=== PATIENT | female | born 1985 | race Caucasian/White ===

== ENCOUNTER 2016-04-05 17:24 | Emergency (ER) | payer OTHER ==
[~2016-04-05] VITALS: Ht 162.6 cm; Wt 68.1 kg
[2016-04-05 17:31] VITALS: BP 124/73; PULSE 113; TEMP 36.7; O2SAT 100; Ht 162.6 cm; Wt 68.1 kg
[2016-04-06] MEDS ORDERED: OXYC1TAB3 PO (22:38)
[2016-04-06] MEDS ORDERED: ONDA4TAB10 SL (22:38)
== END 2016-04-05 19:20 | disposition left against medical advice (07) ==
LOC: C.EDB 17:25 → C.ED 19:20
DX: R10.31 Right lower quadrant pain (principal)

== ENCOUNTER 2016-04-06 18:35 | Emergency (ER) | payer OTHER ==
[~2016-04-06] VITALS: Ht 162.6 cm; Wt 67.2 kg
[2016-04-06 18:44] VITALS: TEMP 37.1; Ht 162.6 cm; Wt 67.2 kg
[2016-04-06] MEDS ORDERED: SODIUM CHLORIDE 0.9% 1000ML 1,000 ML IV STA ×2 (18:54)
[2016-04-06] MEDS ORDERED: ONDANSETRON INJ 2 MG/ML 2 ML VIAL IV STA (18:54)
[2016-04-06 19:13] LABS: URINE APPEARANCE CLEAR (CLEAR); URINE BILIRUBIN NEG (NEG); URINE COLOR YELLOW; URINE NITRITE NEG (NEG); URINE SPECIFIC GRAVITY 1.017 (1.000-1.030); UROBILINOGEN NEG (NEG)
[2016-04-06 19:17] LABS: MANUAL MICROSCOPIC REQUIRED? NO; REVIEW REQ? NO
[2016-04-06] MEDS: MoRPHine SULFATE 4 MG/ML 1 ML CARP\\VIAL IV PRN ×2 (19:21→22:10)
[2016-04-06 19:32] LABS: BASO % 0.2 %; BASO ABS # 0.02 K/uL (0-0.2); COMPLETE YES; EOS % 0.6 %; HEMATOCRIT 40.9 % (37-47); IG% 0.1 %; LYMPH % 14.9 %; LYMPH ABS # 1.46 K/uL (1.2-3.4); MEAN CELL VOLUME 89.1 fL (80-100); MEAN CORPUSCULAR HEMOGLOBIN 31.2 pg (25-34); MONO % 6.4 %; NEUT % 77.8 %; PLATELET COUNT 155 K/uL (130-400); RED BLOOD COUNT 4.59 M/uL (4.2-5.4); WHITE BLOOD COUNT 9.81 K/uL (4.8-10.8)
--- NOTE | 2016-04-06 19:40 | DIAGNOSTIC IMAGING REPORT ---
CT SCAN OF THE ABDOMEN AND PELVIS WITHOUT IV CONTRAST CLINICAL HISTORY: Right flank pain. COMPARISON STUDY: Abdominal CT dated 11/28/2014. TECHNIQUE: CT scan of the abdomen and pelvis is performed from the lung bases to the proximal femora. Images are reviewed in the axial, sagittal, and coronal planes. IV contrast was not administered for this examination. Automated dose control exposure was utilized. CT DOSE: 284.90 mGy.cm FINDINGS: Lung bases: The heart is normal in size and without pericardial effusion. The lung bases are clear noting left basilar atelectasis. Liver: The unenhanced liver is normal in size, contour, and attenuation. There is no intrahepatic biliary ductal dilatation. Gallbladder: Unremarkable. Spleen: Normal in size and attenuation. Pancreas: Unremarkable. Adrenal glands: Unremarkable. Kidneys: The unenhanced kidneys are normal in size and without hydronephrosis. There is fullness of the right renal collecting system. There are 2 punctate nonobstructing left calculi. A punctate nonobstructing right renal calculus is noted. No obstructing ureteral calculus is identified. There is a 1.5 cm cyst in the left upper pole. Abdominal vasculature: The abdominal aorta is normal in course and caliber. Bowel: The small bowel and colon are normal in course and caliber. The appendix is normal as visualized. Peritoneum: There is no intraperitoneal free air or abdominal ascites. Lymphadenopathy: None. Pelvic viscera: The bladder is normal as visualized. The uterus is normal in appearance noting an intrauterine device in place. The right ovary appears larger than the left. There are numerous bilateral ovarian follicles. There is free fluid in the cul-de-sac. Skeletal structures: No lytic or blastic lesions are seen. IMPRESSION: 1. There are punctate bilateral nonobstructing renal calculi. No obstructing calculus is seen. 2. There is mild fullness of the right renal collecting system without idalia hydronephrosis. This is nonspecific but could represent the sequelae of a recently passed kidney stone. Clinical correlation will be required. 3. The ovaries appear enlarged and contain numerous follicles. There is asymmetric enlargement of the right ovary as compared to the left as well as free fluid in the cul-de-sac. If there is clinical concern for ovarian pathology a pelvic ultrasound should be considered for further assessment. Electronically signed by: Troy Katz M.D. 04/06/2016 7:39 PM Dictated Date/Time: 04/06/2016 7:32 PM
[2016-04-06 20:11] LABS: ALKALINE PHOSPHATASE 43 U/L (45-117); ALT/SGPT 14 U/L (12-78); BLOOD UREA NITROGEN 12 mg/dl (7-18); BUN/CREATININE RATIO 14.9 (10-20); CALCIUM 9.2 mg/dl (8.5-10.1); CARBON DIOXIDE 25 mmol/L (21-32); CHLORIDE 104 mmol/L (98-107); CREATININE 0.81 mg/dl (0.60-1.20); GLUCOSE 72 mg/dl (70-99); SODIUM 139 mmol/L (136-145)
[2016-04-06 20:55] LABS: PREG INTERNAL NEGATIVE QC NEG CLEAR BACKGROUND; PREG INTERNAL POSITIVE QC POS CONTROL LINE
--- NOTE | 2016-04-06 22:09 | DIAGNOSTIC IMAGING REPORT ---
ULTRASOUND OF THE PELVIS CLINICAL HISTORY: Right pelvic pain. COMPARISON STUDY: Pelvic CT dated 04/06/2016. Pelvic ultrasound dated 11/28/2014. TECHNIQUE: Real-time, grayscale, and color flow sonography of the pelvis is performed both transabdominally and endovaginally. Images are reviewed in the transverse and longitudinal planes. FINDINGS: Uterus: The uterus is normal in size and echotexture, measuring 9.0 x 4.4 x 6.6 cm. Endometrium: The endometrium is normal in appearance, and the endometrial stripe is normal in thickness measuring up to 1.0 cm. An intrauterine device appears to be in appropriate position. Ovaries: The right ovary appears enlarged, measuring 5.8 x 3.9 x 5.4 cm and the left ovary measures 4.4 x 2.1 x 2.7 cm. There is a smaller structure appears to contain follicles are cystic foci adjacent the right ovary which measures 2.0 x 1.1 x 1.9 cm. Bilateral follicles are noted. Normal Doppler waveforms are shown within both ovaries. Pelvis: There is a moderate volume of free fluid in the cul-de-sac. IMPRESSION: 1. The uterus and left ovary normal in appearance noting an intrauterine device in place. 2. There is a moderate volume of free fluid in the cul-de-sac. 3. There is no sonographic evidence of ovarian torsion at the time of examination. 4. The right ovary appears enlarged and heterogeneous. There is an additional structure located immediately adjacent the right ovary measuring up to 2.0 cm. Both demonstrate internal flow. This represents a change from the prior pelvic ultrasound dated 11/28/2014 and this is of indeterminant significance. This could represent atypical large hemorrhagic cyst or possibly an endometrioma. A mass lesion or ectopic is considered less likely but would be impossible to exclude. Correlation with serum beta-hCG levels required. Follow-up with gynecology is recommended and a precautionary follow-up ultrasound is recommended in 1 to 2 menstrual cycles to document resolution. Electronically signed by: Troy Katz M.D. 04/06/2016 10:08 PM Dictated Date/Time: 04/06/2016 9:59 PM
[2016-04-06] MEDS ORDERED: OXYC1TAB3 PO (22:38)
[2016-04-06] MEDS ORDERED: ONDA4TAB10 SL (22:38)
[2016-04-06] MEDS ORDERED: OXYCODONE IR HOME PACK PO ONE (22:45)
[2016-04-06] MEDS ORDERED: ONDANSETRON HOME PACK 4MG OD TAB PO ONE (22:45)
[2016-04-06 23:02] VITALS: BP 107/71; PULSE 77; O2SAT 97
--- NOTE | 2016-04-07 01:21 | EMERGENCY ROOM VISIT NOTE ---
History Report prepared by Anastacia: Saundra Barcenas Under the Supervision of: Barrie CohO. First contact with patient: 18:49 Chief Complaint: ABDOMINAL PAIN Stated Complaint: RIGHT SIDE AB PAIN Nursing Triage Summary: RLQ pain into back. hx of kidney stones. no urinary symptoms History of Present Illness The patient is a 30 year old female who presents to the Emergency Room via with complaints of worsening abdominal pain with onset 2 days ago. She describes that the pain would wrap around her side. She describes that the pain feels as if it is located in her kidneys. Several days ago, the patient noticed that coughing made her vomit. She notes that she has a history of kidney stones but that these symptoms feel different. The patient denies taking daily medications. She denies fevers, chills. The patient notes that she has some abdominal pain with intercourse. She denies vaginal discharge or unusual bleeding. Additionally, the patient notes that she came to the ED yesterday to be evaluated for these symptoms. She waited in the waiting room for two hours until leaving without being seen. Source of History: patient Onset: 2 days ago Position: abdomen Quality: other (abdominal pain) Timing: worsening Associated Symptoms: No chills, No fevers Note: The patient notes that she has some abdominal pain with intercourse. She denies vaginal discharge or unusual bleeding. Review of Systems See HPI for pertinent positives & negatives. A total of 10 systems reviewed and were otherwise negative. Past Medical & Surgical Medical Problems: (1) Hx of ovarian cyst (2) No chronic problems Family History Kidney disease Kidney stones Social History Smoking Status: Current Every Day Smoker Alcohol Use: occasionally Marital Status: single Housing Status: lives with family Occupation Status: employed Current/Historical Medications Scheduled Iud's (Paragard Intrauterine Trout Farmer), 1 EA INT UTER UD Ondasetron Odt (Zofran Odt), 4 MG SL Q6H Scheduled PRN Oxycodone Immediate Rel Tab (Roxicodone Ir), 1-2 TAB PO Q4H PRN for Severe Pain Allergies Coded Allergies: No Known Allergies (Verified , 04/06/16) Physical Exam Vital Signs Date Time Temp Pulse Resp B/P Pulse Ox O2 Delivery O2 Flow Rate FiO2 04/06/16 23:02 77 18 107/71 97 04/06/16 22:08 72 18 114/74 97 Room Air 04/06/16 19:09 103 04/06/16 18:44 37.1 107 20 101/66 100 Room Air Physical Exam GENERAL: Patient is awake, alert, somewhat anxious appearing and uncomfortable. EYES: The conjunctivae are clear. The pupils are round and reactive. EARS, NOSE, MOUTH AND THROAT: The nose is without any evidence of any deformity. Mucous membranes are moist tongue is midline NECK: The neck is nontender and supple. RESPIRATORY: Normal respiratory effort is noted there is no evidence of wheezing rhonchi or rales CARDIOVASCULAR: Regular rate and rhythm noted there no murmurs rubs or gallops normal S1 normal S2 GASTROINTESTINAL: The abdomen is mildly distended but soft. There was significant right lower quadrant tenderness to palpation, mild guarding was noted in the right lower quadrant. Bowel sounds are present in all quadrants. BACK: Mild right CVA tenderness to percussion, no midline tenderness was noted , range of motion appeared intact. MUSCULOSKELETAL/EXTREMITIES: There is no evidence of gross deformity full range of motion is noted in the hips and shoulders SKIN: There is no obvious evidence of any rash. There are no petechiae, pallor or cyanosis noted. NEUROLOGIC: Patient is awake alert and oriented x3. Medical Decision & Procedures ER Provider Diagnostic Interpretation: CT results as stated below per my review and radiologist interpretation. Other radiology results per my review and radiologist interpretation: CT SCAN OF THE ABDOMEN AND PELVIS WITHOUT IV CONTRAST CLINICAL HISTORY: Right flank pain. COMPARISON STUDY: Abdominal CT dated 11/28/2014. TECHNIQUE: CT scan of the abdomen and pelvis is performed from the lung bases to the proximal femora. Images are reviewed in the axial, sagittal, and coronal planes. IV contrast was not administered for this examination. Automated dose control exposure was utilized. CT DOSE: 284.90 mGy.cm FINDINGS: Lung bases: The heart is normal in size and without pericardial effusion. The lung bases are clear noting left basilar atelectasis. Liver: The unenhanced liver is normal in size, contour, and attenuation. There is no intrahepatic biliary ductal dilatation. Gallbladder: Unremarkable. Spleen: Normal in size and attenuation. Pancreas: Unremarkable. Adrenal glands: Unremarkable. Kidneys: The unenhanced kidneys are normal in size and without hydronephrosis. There is fullness of the right renal collecting system. There are 2 punctate nonobstructing left calculi. A punctate nonobstructing right renal calculus is noted. No obstructing ureteral calculus is identified. There is a 1.5 cm cyst in the left upper pole. Abdominal vasculature: The abdominal aorta is normal in course and caliber. Bowel: The small bowel and colon are normal in course and caliber. The appendix is normal as visualized. Peritoneum: There is no intraperitoneal free air or abdominal ascites. Lymphadenopathy: None. Pelvic viscera: The bladder is normal as visualized. The uterus is normal in appearance noting an intrauterine device in place. The right ovary appears larger than the left. There are numerous bilateral ovarian follicles. There is free fluid in the cul-de-sac. Skeletal structures: No lytic or blastic lesions are seen. IMPRESSION: 1. There are punctate bilateral nonobstructing renal calculi. No obstructing calculus is seen. 2. There is mild fullness of the right renal collecting system without idalia hydronephrosis. This is nonspecific but could represent the sequelae of a recently passed kidney stone. Clinical correlation will be required. 3. The ovaries appear enlarged and contain numerous follicles. There is asymmetric enlargement of the right ovary as compared to the left as well as free fluid in the cul-de-sac. If there is clinical concern for ovarian pathology a pelvic ultrasound should be considered for further assessment. Electronically signed by: Troy Katz M.D. 04/06/2016 7:39 PM Dictated Date/Time: 04/06/2016 7:32 PM ULTRASOUND OF THE PELVIS CLINICAL HISTORY: Right pelvic pain. COMPARISON STUDY: Pelvic CT dated 04/06/2016. Pelvic ultrasound dated 11/28/2014. TECHNIQUE: Real-time, grayscale, and color flow sonography of the pelvis is performed both transabdominally and endovaginally. Images are reviewed in the transverse and longitudinal planes. FINDINGS: Uterus: The uterus is normal in size and echotexture, measuring 9.0 x 4.4 x 6.6 cm. Endometrium: The endometrium is normal in appearance, and the endometrial stripe is normal in thickness measuring up to 1.0 cm. An intrauterine device appears to be in appropriate position. Ovaries: The right ovary appears enlarged, measuring 5.8 x 3.9 x 5.4 cm and the left ovary measures 4.4 x 2.1 x 2.7 cm. There is a smaller structure appears to contain follicles are cystic foci adjacent the right ovary which measures 2.0 x 1.1 x 1.9 cm. Bilateral follicles are noted. Normal Doppler waveforms are shown within both ovaries. Pelvis: There is a moderate volume of free fluid in the cul-de-sac. IMPRESSION: 1. The uterus and left ovary normal in appearance noting an intrauterine device in place. 2. There is a moderate volume of free fluid in the cul-de-sac. 3. There is no sonographic evidence of ovarian torsion at the time of examination. 4. The right ovary appears enlarged and heterogeneous. There is an additional structure located immediately adjacent the right ovary measuring up to 2.0 cm. Both demonstrate internal flow. This represents a change from the prior pelvic ultrasound dated 11/28/2014 and this is of indeterminant significance. This could represent atypical large hemorrhagic cyst or possibly an endometrioma. A mass lesion or ectopic is considered less likely but would be impossible to exclude. Correlation with serum beta-hCG levels required. Follow-up with gynecology is recommended and a precautionary follow-up ultrasound is recommended in 1 to 2 menstrual cycles to document resolution. Electronically signed by: Troy Katz M.D. 04/06/2016 10:08 PM Dictated Date/Time: 04/06/2016 9:59 PM Laboratory Results 04/06/16 19:10 Red Blood Count 4.59, Mean Corpuscular Volume 89.1, Mean Corpuscular Hemoglobin 31.2, Mean Corpuscular Hemoglobin Concent 35.0, Mean Platelet Volume 12.0, Neutrophils (%) (Auto) 77.8, Lymphocytes (%) (Auto) 14.9, Monocytes (%) (Auto) 6.4, Eosinophils (%) (Auto) 0.6, Basophils (%) (Auto) 0.2, Neutrophils # (Auto) 7.63, Lymphocytes # (Auto) 1.46, Monocytes # (Auto) 0.63, Eosinophils # (Auto) 0.06, Basophils # (Auto) 0.02 04/06/16 19:10 Test 04/06/16 19:00 04/06/16 19:10 04/06/16 22:25 Urine Color YELLOW Urine Appearance CLEAR (CLEAR) Urine pH 7.0 (4.5-7.5) Urine Specific [place] 1.017 (1.000-1.030) Urine Protein NEG (NEG) Urine Glucose (UA) NEG (NEG) Urine Ketones NEG (NEG) Urine Occult Blood NEG (NEG) Urine Nitrite NEG (NEG) Urine Bilirubin NEG (NEG) Urine Urobilinogen NEG (NEG) Urine Leukocyte Esterase NEG (NEG) Urine Test NEG (NEG) White Blood Count 9.81 K/uL (4.8-10.8) Red Blood Count 4.59 M/uL (4.2-5.4) Hemoglobin 14.3 g/dL (12.0-16.0) Hematocrit 40.9 % (37-47) Mean Corpuscular Volume 89.1 fL (80-100) Mean Corpuscular Hemoglobin 31.2 pg (25-34) Mean Corpuscular Hemoglobin Concent 35.0 g/dl (32-36) Platelet Count 155 K/uL (130-400) Mean Platelet Volume 12.0 fL (7.4-10.4) Neutrophils (%) (Auto) 77.8 % Lymphocytes (%) (Auto) 14.9 % Monocytes (%) (Auto) 6.4 % Eosinophils (%) (Auto) 0.6 % Basophils (%) (Auto) 0.2 % Neutrophils # (Auto) 7.63 K/uL (1.4-6.5) Lymphocytes # (Auto) 1.46 K/uL (1.2-3.4) Monocytes # (Auto) 0.63 K/uL (0.11-0.59) Eosinophils # (Auto) 0.06 K/uL (0-0.5) Basophils # (Auto) 0.02 K/uL (0-0.2) RDW Standard Deviation 42.1 fL (36.4-46.3) RDW Coefficient of Variation 12.9 % (11.5-14.5) Immature Granulocyte % (Auto) 0.1 % Immature Granulocyte # (Auto) 0.01 K/uL (0.00-0.02) Anion Gap 10.0 mmol/L (3-11) Est Creatinine Clear Calc Drug Dose 95.7 ml/min Estimated GFR () 113.0 Estimated GFR (Non- 97.5 BUN/Creatinine Ratio 14.9 (10-20) Calcium Level 9.2 mg/dl (8.5-10.1) Total Bilirubin 0.4 mg/dl (0.2-1) Direct Bilirubin mg/dl (0-0.2) Aspartate Amino Transf (AST/SGOT) U/L (15-37) Alanine Aminotransferase (ALT/SGPT) 14 U/L (12-78) Alkaline Phosphatase 43 U/L (45-117) Total Protein 8.1 gm/dl (6.4-8.2) Albumin 4.4 gm/dl (3.4-5.0) Lipase 131 U/L (73-393) Date/Time Source Procedure Growth Status 04/06/16 22:25 Vaginal Swab Trichomonas Preparation - Final Complete Laboratory results per my review. Medications Administered Medications (Trade) Dose Ordered Sig/David Route Start Time Stop Time Status Last Admin Dose Admin Sodium Chloride 1,000 ml @ 999 mls/hr Q1H1M STAT IV 04/06/16 18:54 04/06/16 19:54 DC 04/06/16 18:54 999 MLS/HR Sodium Chloride (Nss 1000ml) 1,000 ml @ 125 mls/hr Q8H STAT IV 04/06/16 18:54 04/06/16 23:41 DC 04/06/16 18:54 125 MLS/HR Morphine Sulfate (MoRPHine SULFATE INJ) 4 mg Q15M PRN IV 04/06/16 19:00 04/06/16 23:41 DC 04/06/16 22:10 4 MG Ondansetron HCl (Zofran Inj) 4 mg NOW STAT IV 04/06/16 18:54 04/06/16 18:56 DC 04/06/16 18:54 4 MG Oxycodone HCl (Roxicodone Immediate Rel 5MG Home Pack) 1 homepack UD ONCE PO 04/06/16 22:45 04/06/16 22:46 DC 04/06/16 22:45 1 HOMEPACK Ondansetron HCl (ZOFRAN ODT 4MG Home Pack) 1 homepack UD ONCE PO 04/06/16 22:45 04/06/16 22:46 DC 04/06/16 22:45 1 HOMEPACK ED Course 1851: The patient was evaluated in room B2. A complete history and physical examination were performed. 1854: Zofran 4 mg IV, NSS 1,000 ml @ 125 mls/hr IV, NSS 1,000 ml @ 999 mls/hr IV 1900: Morphine Sulfate 4 mg IV 2234: I discussed the case with Dr. Houston (OBGYN); she advises that she will see the the patient as an outpatient in the office. 2235: Upon reevaluation, the patient is doing well. I discussed the results and treatment plan with the patient. She verbalized agreement of the treatment plan. The patient was discharged home. 5: Zofran 4 mg 1 homepack PO, Oxycodone HCl 5 mg 1 homepack PO Medical Decision Differential diagnosis: Etiologies such as appendicitis, diverticulitis, PUD, biliary pathology, UTI, pancreatitis, obstruction, mesenteric ischemia, aortic pathology, infections, inflammatory bowel disease, renal colic, as well as others were entertained. Nursing notes reviewed. The patient is a 30-year-old female who presented to the emergency department for an evaluation of right-sided abdominal pain. The patient had a kidney stone the past and thought that this was consistent with her previous kidney stone. She was found have very significant right lower quadrant abdominal tenderness and I was concerned this could represent appendicitis. On CT the abdomen and pelvis was found the patient has a right adnexal abnormality. Pelvic exam revealed no signs of pelvic inflammatory disease. She did not have discharge or and injected cervix. The patient was treated with IV fluids in the emergency department. She was also given IV pain medication IV antiemetics. On subsequent reevaluation she was feeling much better. CAT scan do not show any signs of appendicitis but did reveal abnormality in the right adnexa. Ultrasound was obtained. There does appear to be an ovarian cyst at this time which may be hemorrhagic in nature. There was free fluid in the pelvis. I discussed the patient's laboratory and radiographic studies with her. I also discussed her case with the on-call [facility] physician. They've agreed to evaluate the patient in the emergency department for further management and disposition. Consults Time Called: 2231 Consulting Physician: Dr. Houston (OBGYN) Returned Call: 2233 I discussed the case with Dr. Houston (OBGYN); she advises that she will see the the patient as an outpatient in the office. Impression Primary Impression: Right sided abdominal pain Additional Impression: Right ovarian cyst Scribe Attestation The scribe's documentation has been prepared under my direction and personally reviewed by me in its entirety. I confirm that the note above accurately reflects all work, treatment, procedures, and medical decision making performed by me. Departure Information Dispostion Home / Self-Care Prescriptions Ondasetron Odt (ZOFRAN ODT) 4 Mg Tab 4 MG SL Q6H for Nausea, #15 TAB Prov: Morgan Perez, DO 04/06/16 Oxycodone Immediate Rel Tab (ROXICODONE IR) 5 Mg Tab 1-2 TAB PO Q4H Y for Severe Pain, #24 TAB Prov: Morgan Perez, DO 04/06/16 Referrals No Doctor, Assigned (PCP) Forms Call Back Authorization, HOME CARE DOCUMENTATION FORM, IMPORTANT VISIT INFORMATION, Work Instructions Patient Instructions ED Cyst Ovarian, [facility] Additional Instructions Call the [facility] physician to schedule a follow-up appointment. Drink plenty of clear liquids. Rest and avoid any strenuous activity. Return to the emergency department immediately if symptoms change worsen or the need arises. Problem Qualifiers
[2016-04-09 02:15] LABS: CHLAMYDIA TRACH RNA*** NOT DETECTED (NOT DETECTED); GC (NEIS GONORRHOEAE)RNA** NOT DETECTED (NOT DETECTED)
== END 2016-04-06 23:03 | disposition home or self-care (01) ==
LOC: C.EDB 18:36
DX: N83.201 Unspecified ovarian cyst, right side (principal); Z87.442 Personal history of urinary calculi; F17.210 Nicotine dependence, cigarettes, uncomplicated

== ENCOUNTER 2016-07-29 15:11 | Emergency (ER) | payer OTHER ==
[~2016-07-29] VITALS: Ht 162.6 cm; Wt 64.6 kg
[~2016-07-29 15:11] MED LIST: ONDA4TAB10 SL; OXYC1TAB3 PO
[2016-07-29 15:20] VITALS: TEMP 36.6; Ht 162.6 cm; Wt 64.6 kg
[2016-07-29] MEDS ORDERED: FLUO20CA20 PO (15:28)
[2016-07-29] MEDS ORDERED: IBUP-1050 PO (15:28)
--- NOTE | 2016-07-29 15:44 | DIAGNOSTIC IMAGING REPORT ---
RIGHT WRIST 4 VIEWS HISTORY: R wrist pain Right COMPARISON: None. FINDINGS: There is no fracture or dislocation. Soft tissues are unremarkable. No radiopaque foreign bodies. IMPRESSION: No fractures. Electronically signed by: Shalom Davis M.D. 07/29/2016 3:42 PM Dictated Date/Time: 07/29/2016 3:41 PM
[2016-07-29] MEDS ORDERED: IUD'IUD INT UTER (16:19)
[2016-07-29 16:24] VITALS: BP 112/60; PULSE 68; O2SAT 99
--- NOTE | 2016-07-30 01:20 | EMERGENCY ROOM VISIT NOTE ---
ED Visit Note First contact with patient: 15:23 Chief Complaint: Right wrist pain. History of Present Illness: Ms. Patterson is a 31-year-old white female who ambulates into the ED accompanied by her son complaining of left wrist and forearm pain. Patient reports historically she has a history of cracking her knuckles, her wrists and her forearms. She does report she has no history of recent trauma to the right upper extremity. Patient reports she has been having a throbbing and achy pain from the mid forearm extending down into the wrist and the proximal aspect of the thumb. She rates this discomfort 5/10. The pain is nonradiating. The pain worsens with palpation, pronation and flexion and extension of the wrist. She does report she used one dose of ibuprofen yesterday with mild relief of her discomfort. She denies any associated symptoms including fevers, chills, sweats , skin eruptions, skin color changes neck pain, elbow pain, finger pain, arm/ wrist/hand weakness/numbness/tingling. Additionally she reports she has had no previous significant injuries or surgeries. Review of Systems: As noted above in history of present illness. 8 body systems were reviewed and found to be negative as noted above. Past Medical History: Gastric ulcers, GERD, kidney stones, constipation, ovarian cyst. Current Medications: control, ibuprofen, fluoxetine. Allergies to Medications: Patient denies. Social History: Patient is currently employed; she feels safe in her home environment; she admits to tobacco use and alcohol use. Physical Examination: Vital Signs: Date Time Temp Pulse Resp B/P Pulse Ox O2 Delivery O2 Flow Rate FiO2 07/29/16 15:20 36.6 72 18 119/52 97 Room Air GENERAL: 31-year-old female in mild distress due to pain, nontoxic-appearing, afebrile and hemodynamically stable. NEUROLOGICAL: Awake, alert and oriented to person, place and time. Answering questions appropriately and following commands. Normal gait. Good hand eye coordination. No focal motor or sensory deficits. SKIN: Warm, dry and pink. No soft tissue eruptions or trauma noted. LEFT UPPER EXTREMITY: No gross bony deformity. No tenderness in the shoulder, humerus, elbow or fingers. Mild tenderness starting at the mid forearm and extending distally into the wrist and proximal portion of the hand. The pain is mostly in the tendons of the musculature of the forearm. No tenderness over the bony prominences. Do not appreciate any bony deformity or crepitus. There is no swelling, erythema or ecchymosis. She has full range of motion in flexion and extension of the elbow and flexion and extension of all fingers. Decreased range of motion in all movements of the wrist due to pain. Throughout the hand the skin was warm and pink and capillary refill is brisk. She is able to distinguish light sensations through all dermatomes. ED Course: Patient is assessed as noted above. Right Wrist X-Rays: Were read by myself and the radiologist showing no acute fractures or dislocations. Soft tissues are unremarkable and there is no foreign bodies present. Patient was offered pain medications and refused. Patient's wrist/hand was placed in a thumb spica. Patient was educated about today's findings and instructed on her treatment plan ; she verbalizes understanding and agreement with this plan. Clinical Impression: Tendinitis. Decision-Making: Initially my differential diagnosis I considered bony fracture , dislocation, muscle strain, ligamentous sprain, tendinitis, bursitis and other causes. Disposition: Patient discharged home in stable condition accompanied by her son ; prior to departure she was reassessed and subjectively reported she was feeling slightly better. Plan: Comfort measures were discussed with the patient including alternating ibuprofen and acetaminophen every 3 hours for pain, she was prescribed a Medrol Dosepak for inflammation, she was encouraged to use ice and splint. Patient was encouraged to follow-up with ep specialist if no better 6 or 7 days. Patient was encouraged return ED for worsening/uncontrolled pain, wrist/arm swelling/redness, finger weakness/numbness/tingling or any new/concerning symptoms.
== END 2016-07-29 16:25 | disposition home or self-care (01) ==
LOC: C.EDB 15:13 → C.EDD 16:25
DX: M77.8 Other enthesopathies, not elsewhere classified (principal); K21.9 Gastro-esophageal reflux disease without esophagitis; Z87.442 Personal history of urinary calculi; Z79.3 Long term (current) use of hormonal contraceptives; Z79.899 Other long term (current) drug therapy; Z72.0 Tobacco use

== ENCOUNTER → 2016-08-11 | Outpatient (CLI) | payer OTHER ==
[~2016-08-11] MED LIST changes: +CEPH-571 PO; +CYCL10TA6 PO; +FLUO20CA20 PO; +IBUP-1050 PO; +IUD'IUD INT UTER; -ONDA4TAB10 SL; -OXYC1TAB3 PO
--- NOTE | 2016-08-11 12:43 | DIAGNOSTIC IMAGING REPORT ---
CERVICAL SPINE 3 VIEWS HISTORY: Pain. Neuropathy. NECK PAIN COMPARISON: None. FINDINGS: The cervical spine is visualized from C1 through the superior endplate of T1. There is no fracture. No subluxation. Mild degenerative disc change C5-C6. Prevertebral soft tissues and the atlantodens interval are intact. IMPRESSION: Mild degenerative change C5-C6. Otherwise negative study Electronically signed by: Kris North M.D. 08/11/2016 12:42 PM Dictated Date/Time: 08/11/2016 12:41 PM
== END | disposition home or self-care (01) ==
LOC: C.RAD 12:06
PROVIDERS: ATTEND Nurse Practitioner
DX: M54.2 Cervicalgia (principal)

== ENCOUNTER 2016-10-23 08:07 | Emergency (ER) | payer OTHER ==
[~2016-10-23] VITALS: Ht 162.6 cm; Wt 63.8 kg
[~2016-10-23 08:07] MED LIST changes: -CEPH-571 PO; -CYCL10TA6 PO
[2016-10-23 08:15] VITALS: TEMP 36.7; Ht 162.6 cm; Wt 63.8 kg
[2016-10-23] MEDS ORDERED: CYCL10TA6 PO (08:49)
[2016-10-23 08:59] VITALS: BP 111/59; PULSE 65; O2SAT 98
--- NOTE | 2016-10-23 18:21 | EMERGENCY ROOM VISIT NOTE ---
ED Visit Note First contact with patient: 08:25 CHIEF COMPLAINT: Neck pain History of present illness: This 31-year-old white female patient presents with neck pain that she has been dealing with for several months. She has been in physical therapy for the last 5 weeks. 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 Over the past several days her neck pain is becoming worse. She denies any radiculopathy. She has known arthritic disease at the C5-C6 level by x-ray. No injury to the area. No recent heavy exertion or unusual activity that he knows that may have started the pain. No numbness or weakness of the extremities. No nausea or vomiting. The pain is worse with neck movement. She states she has not taken anything for the discomfort. She has an easily upset stomach and does not take many anti-inflammatories. She has not had MRI imaging yet. Pain is worse with looking up or rotating her neck. Her best position is looking slightly down. REVIEW OF SYSTEM: HEENT: No dizziness, visual problems, hearing loss, or tinnitus. There is no difficulty swallowing and no oral lesions are present. PULMONARY: No cough, shortness of breath, sputum production or hemoptysis. CARDIOVASCULAR: No chest pain, palpitations, shortness of breath or peripheral edema. GASTROINTESTINAL: No diarrhea, constipation, nausea, vomiting, or abdominal pain. GENITOURINARY: No dysuria, frequency, urgency or nocturia. NEUROLOGIC: No weakness, muscle tenderness, epilepsy or history of neurological problems. MUSCULOSKELETAL: No history of joint tenderness/swelling. No history of arthritis or arthralgias. SKIN: No rashes or lesions. PSYCHIATRIC: Positive history of depression ENDOCRINE: No history of diabetes, thyroid disorders, or abnormal hair growth. PMH: Significant for history of depression, ovarian cysts, constipation, kidney stones, and GERD Previous surgeries: Tonsillectomy, laryngotomy, coloscopy. Family history: Significant for diabetes, heart disease, hypertension, cancer, lung disease, gallbladder disease, and kidney stones. Parents are living. SOCIAL HISTORY: Patient lives at home with her child. Employed. Tobacco use of a half pack a day. Occasional EtOH use. Current medications: Intermittent use of fluoxetine. Allergies: NKDA PHYSICAL EXAM: Vital Signs: Reviewed Nurse's notes. Afebrile. MENTAL STATUS: Alert, oriented, and cooperative. NECK: Paraspinous muscle tenderness, bilateral muscle spasm in the trapezius. Focal discomfort with palpation over the C4 through C6 area. No pain with palpation over her C7 through lumbar spine. Limited rotation secondary to muscle spasm. Full forward flexion. Extension also limited secondary to discomfort. CHEST: Non-tender, symmetrical , no retractions. LUNGS: Clear to auscultation. NEUROLOGICAL: Alert, oriented, and cooperative. Cranial nerves, sensation and strength grossly intact. Pupils round, equal, and react to light, EOMs are full. EMERGENCY DEPARTMENT COURSE: Radiographic imaging previously obtained shows some minor arthritic change at C5-C6. No other abnormalities are noted. DIAGNOSIS: Cervical muscle strain DISCHARGE INSTRUCTIONS & TREATMENT: Patient was educated regarding today's findings. Conservative care measures were discussed. Possibility of cervical disc disease was discussed. I did suggest that she talk with her PCP about MRI imaging of her neck, as symptoms have been persisting despite physical therapy and conservative treatment. She may use oral anti-inflammatories such as ibuprofen or Aleve to improve her comfort. Given her muscle spasms, I did recommend muscle relaxant use for better pain control. Prescription was provided for Flexeril 10 mg to be used every 8 hours as needed for pain/spasm. Rest and avoid any painful or strenuous activities. She will need to be careful about lifting anything heavy above shoulder level or way from the body while at work. She may also elect to find a physical therapist that specializes in spine care. Return to the ED for any other concerns. She was reassured that I do not suspect fracture, meningitis, or brachial plexus injury. Problem List Medical Problems: (1) Hx of ovarian cyst Status: Resolved (2) No chronic problems Status: Chronic Current/Historical Medications Scheduled Fluoxetine Hcl (Pmdd) (Fluoxetine), 1 CAP PO DAILY Ibuprofen (Advil), 600 MG PO PRN UD Iud's (Paragard Intrauterine Flight Service Agent), 1 EA INT UTER UD Scheduled PRN Cyclobenzaprine Hcl (Flexeril), 10 MG PO TID PRN for Pain Allergies Coded Allergies: No Known Allergies (Verified , 04/06/16) Vital Signs Date Time Temp Pulse Resp B/P (MAP) Pulse Ox O2 Delivery O2 Flow Rate FiO2 10/23/16 08:59 65 111/59 98 10/23/16 08:15 36.7 80 18 114/74 99 Room Air Departure Information Impression Primary Impression: Cervical spine pain Dispostion Home / Self-Care Condition GOOD Prescriptions Cyclobenzaprine Hcl (FLEXERIL) 10 Mg Tab 10 MG PO TID Y for Pain, #12 TAB Prov: Syed Bolaños,P.A. 10/23/16 Forms WORK / SCHOOL INSTRUCTIONS, HOME CARE DOCUMENTATION FORM, MOTRIN USE, IMPORTANT VISIT INFORMATION Patient Instructions My [facility] Additional Instructions Follow-up with your PCP for a MRI referral Continue with gentle stretching daily Continue your physical therapy Moist heat applied to the neck throughout the day may provide comfort-apply ice at night Flexeril one pill every 8 hours as needed for pain/spasm-no driving Return to the ED for any acute worsening of symptoms or radiating pain to the arms Avoid heavy lifting away from the body or overhead.
== END 2016-10-23 09:00 | disposition home or self-care (01) ==
LOC: C.EDB 08:09 → C.EDA 09:00
DX: M54.2 Cervicalgia (principal); M47.812 Spondylosis without myelopathy or radiculopathy, cervical region; F32.9 Major depressive disorder, single episode, unspecified; K59.00 Constipation, unspecified; K21.9 Gastro-esophageal reflux disease without esophagitis; F17.200 Nicotine dependence, unspecified, uncomplicated; Z87.442 Personal history of urinary calculi; Z83.3 Family history of diabetes mellitus; Z82.49 Family history of ischemic heart disease and other diseases of the circulatory system; Z84.1 Family history of disorders of kidney and ureter

== ENCOUNTER → 2016-10-29 | Outpatient (CLI) | payer OTHER ==
[~2016-10-29] MED LIST changes: +CYCL10TA6 PO
--- NOTE | 2016-10-29 14:38 | DIAGNOSTIC IMAGING REPORT ---
MRI OF THE CERVICAL SPINE WITHOUT IV CONTRAST CLINICAL HISTORY: Cervical radiculopathy. COMPARISON STUDY: Radiographs of the cervical spine dated 08/11/2016. TECHNIQUE: MRI of the cervical spine is performed utilizing various T1 and T2-weighted sequences in the axial and sagittal planes. IV contrast was not administered for this examination. FINDINGS: Cervical spine: Vertebral body height and alignment are maintained throughout the cervical spine. There is straightening of the cervical lordosis with mild reversal centered at C5. No destructive bony lesion is seen. The atlantodental articulation appears maintained. The spinous processes are intact as imaged. Intervertebral discs: Mild degenerative disc desiccation is seen throughout the cervical spine. There is mild loss of height at C5-C6. The disc spaces are otherwise preserved. Spinal cord: The cervical spinal cord is normal in morphology and signal intensity. C2-C3: Unremarkable. C3-C4: Unremarkable. C4-C5: A tiny posterior disc osteophyte complex abuts the ventral cord. The neural foramina are patent. C5-C6: A posterior disc osteophyte complex abuts the ventral cord. Uncovertebral arthropathy causes minimal bilateral neural foraminal stenosis, right greater than left. C6-C7: Unremarkable. C7-T1: The central canal neural an foramina are widely patent. A 5 mm nerve sheath cyst is incidentally noted in the right neural foramen. T1-T2: The central canal neural foramina are widely patent. A tiny nerve sheath cyst is incidentally noted in the right neural foramen. Soft tissues: The prevertebral and paraspinous soft tissues are within normal limits. Brain parenchyma: Partially imaged brain parenchyma the skull base is normal in appearance. IMPRESSION: 1. Mild spondylotic change at C4-C5 and C5-C6 as detailed above. See discussion for detailed level by level analysis. 2. The cervical spinal cord is normal in morphology and signal intensity. Electronically signed by: Troy Katz M.D. 10/29/2016 2:36 PM Dictated Date/Time: 10/29/2016 2:12 PM
== END | disposition home or self-care (01) ==
LOC: C.MRI 13:08
PROVIDERS: ATTEND Nurse Practitioner
DX: M50.121 Cervical disc disorder at C4-C5 level with radiculopathy (principal); M50.122 Cervical disc disorder at C5-C6 level with radiculopathy

== ENCOUNTER 2016-12-18 11:22 | Emergency (ER) | payer OTHER ==
[~2016-12-18] VITALS: Ht 162.6 cm; Wt 66.0 kg
[~2016-12-18 11:22] MED LIST changes: -CYCL10TA6 PO; -FLUO20CA20 PO; -IBUP-1050 PO
[2016-12-18 11:29] VITALS: TEMP 36.8; Ht 162.6 cm; Wt 66.0 kg
[2016-12-18] MEDS ORDERED: SODIUM CHLORIDE 0.9% 1000ML 1,000 ML IV STA (12:06)
[2016-12-18] MEDS ORDERED: KETOROLAC TROMETHAMINE 30 MG/ML VIAL IV STA (12:06)
[2016-12-18] MEDS ORDERED: ONDANSETRON INJ 2 MG/ML 2 ML VIAL IV STA (12:06)
--- NOTE | 2016-12-18 12:53 | DIAGNOSTIC IMAGING REPORT ---
PA CHEST WITH ABDOMINAL SERIES CLINICAL HISTORY: Right-sided abdominal pain. Constipation. FINDINGS: A PA chest radiograph is compared to study dated 01/15/2015. The cardiomediastinal silhouette is unremarkable. The lungs and pleural spaces are clear. No pneumothorax is seen. The bony thorax is grossly intact. Supine and erect abdominal radiographs are correlated with abdominal CT dated 04/06/2016. There is a nonobstructed abdominal bowel gas pattern. No evidence of intraperitoneal free air is seen. Mild fecal retention is seen in the left colon. There are no abnormal abdominal calcifications. Intrauterine device is noted in the pelvis and there are small pelvic phleboliths. The lumbosacral spine and bony pelvis appear intact. IMPRESSION: 1. No active disease in the chest. 2. Nonobstructed abdominal bowel gas pattern. Electronically signed by: Troy Katz M.D. 12/18/2016 12:52 PM Dictated Date/Time: 12/18/2016 12:51 PM
[2016-12-18 13:00] LABS: URINE APPEARANCE CLEAR (CLEAR); URINE BILIRUBIN NEG (NEG); URINE COLOR YELLOW; URINE NITRITE NEG (NEG); URINE SPECIFIC GRAVITY 1.014 (1.000-1.030); UROBILINOGEN NEG (NEG)
[2016-12-18 13:04] LABS: MANUAL MICROSCOPIC REQUIRED? NO; REVIEW REQ? NO
[2016-12-18 13:09] LABS: BASO % 0.1 %; BASO ABS # 0.01 K/uL (0-0.2); COMPLETE YES; EOS % 0.2 %; HEMATOCRIT 35.2 % (37-47); IG% 0.2 %; LYMPH % 21.8 %; LYMPH ABS # 1.82 K/uL (1.2-3.4); MEAN CELL VOLUME 89.1 fL (80-100); MEAN CORPUSCULAR HEMOGLOBIN 30.6 pg (25-34); MEAN CORPUSCULAR HGB CONC 34.4 g/dl (32-36); MEAN PLATELET VOLUME 10.9 fL (7.4-10.4); MONO % 6.8 %; NEUT % 70.9 %; PLATELET COUNT 165 K/uL (130-400); RED BLOOD COUNT 3.95 M/uL (4.2-5.4); WHITE BLOOD COUNT 8.34 K/uL (4.8-10.8)
[2016-12-18 13:31] LABS: BUN/CREATININE RATIO 16.9 (10-20); CALCIUM 8.7 mg/dl (8.5-10.1); CREATININE 0.65 mg/dl (0.60-1.20); POTASSIUM 3.5 mmol/L (3.5-5.1)
[2016-12-18 13:34] LABS: ALB/GLOB RATIO 1.4 (0.9-2)
[2016-12-18] MEDS ORDERED: OPTIRAY 320 IV PRN (14:15)
--- NOTE | 2016-12-18 14:55 | DIAGNOSTIC IMAGING REPORT ---
CT SCAN OF THE ABDOMEN AND PELVIS WITH IV CONTRAST CLINICAL HISTORY: Right-sided abdominal pain. COMPARISON STUDY: Abdominal CT dated 04/06/2016. TECHNIQUE: Following the IV administration of 91 cc of Optiray 320, CT scan of the abdomen and pelvis is performed from the lung bases to the proximal femora. Images are reviewed in the axial, sagittal, and coronal planes. IV contrast was administered without complication. Automated dose control exposure was utilized. CT DOSE: 559.55 mGy.cm FINDINGS: Lung bases: The heart is normal in size and without pericardial effusion. The lung bases are clear noting left basilar atelectasis. Liver: The contrast-enhanced liver is normal in size, contour, and attenuation. The liver appears elongated suggesting Angélica's lobe variant anatomy. There is no intrahepatic biliary ductal dilatation. The hepatic veins and portal veins are patent. Gallbladder: Unremarkable. Spleen: Normal in size and attenuation. Pancreas: Unremarkable. Adrenal glands: Unremarkable. Kidneys: The contrast-enhanced kidneys are normal in size and without hydronephrosis. The kidneys enhance symmetrically. A 1.7 cm cyst is again seen in the upper pole of the left kidney. A subcentimeter cortical hypodensity in the lower pole of left kidney also likely represents a cyst but is too small for definitive characterization. Abdominal vasculature: The abdominal aorta is normal in course and caliber. Bowel: The small bowel and colon are normal in course and caliber. The appendix is normal as visualized. Peritoneum: There is no intraperitoneal free air or abdominal ascites. Lymphadenopathy: None. Pelvic viscera: The bladder is normal as visualized. The uterus is normal in appearance noting an intrauterine device in place. Bilateral ovarian follicles are noted. There is a small volume of free fluid in the cul-de-sac. Skeletal structures: No lytic or blastic lesions are seen. IMPRESSION: 1. There are no acute infectious or inflammatory findings in the abdomen or pelvis. 2. There is a small volume of free fluid in the cul-de-sac, likely within physiologic limits. Electronically signed by: Troy Katz M.D. 12/18/2016 2:54 PM Dictated Date/Time: 12/18/2016 2:48 PM
--- NOTE | 2016-12-18 15:13 | EMERGENCY ROOM VISIT NOTE ---
History First contact with patient: 11:35 Chief Complaint: ABDOMINAL PAIN Stated Complaint: ABD. PAIN ON RT SIDE INTO LOWER ABD. Nursing Triage Summary: Pt. reports history of chronic constipation and abdominal pain, but states the abdominal pain usually improves after she has been up and moving in the morning. She states that today, the pain has not subsided like it usually does and is accompanied by nausea. She states that her last bowel movement was yesterday and it was very painful in her intestines. She also reports having a hemorrhoid presently. Reports the pain is in her right lower abdomen, but it wraps across the lower quadrants as well. History of Present Illness Patient is a 31-year-old white female who presents to emergency department for evaluation of right-sided abdominal pain that started this morning. She's had pain she woke up around 7:00. It has been progressively getting worse as the day has gone on. She has a history of stomach problems, she reports chronic constipation (has been told she has IBS-C), history of stomach ulcers, history of kidney stones and history of ovarian cyst. She notes pain in the right side of her abdomen, from the lower margin of her ribs to the right lower quadrant. She states that the pain is constant and moderate in nature. It feels better when she holds the area and when she sits hunched over. She reports associated nausea and anorexia, without vomiting. She states that she had a bowel movement yesterday which was normal for her. Her last bowel movement had been one week prior. She denies any urinary symptoms. She had pizza for dinner last night 12 hours prior to the onset of her pain. She has an IUD in place. Her last menstrual period was 2 weeks ago. She denies that she could be . She has been seen by gastroenterology for her constipation. She had a colonoscopy last year that was normal. She has not taken any medication for her symptoms. She rates her pain an 8/10. Review of Systems Review of systems as per HPI. All other systems reviewed were negative. 10 systems reviewed. Past Medical/Surgical History Medical Problems: (1) Abdominal pain (2) Cervical spine pain (3) Constipation (4) Depressive disorder (5) History of stomach ulcers (6) Hx of ovarian cyst (7) Left ovarian cyst (8) Neck pain (9) No chronic problems (10) Right distal ureteral calculus (11) Right ovarian cyst (12) Right sided abdominal pain (13) Right upper quadrant abdominal pain (14) Tendinitis of forearm Surgical Problems: (1) History of tonsillectomy Electronic medical records are reviewed and summarized as above/below. See Problem List. Family History Kidney disease Kidney stones Social History Smoking Status: Current Every Day Smoker Alcohol Use: occasionally Marital Status: in relationship Housing Status: lives with family Occupation Status: employed Current/Historical Medications Scheduled Iud's (Paragard Intrauterine Dental Manager), 1 EA INT UTER UD Physical Exam Vital Signs Date Time Temp Pulse Resp B/P (MAP) Pulse Ox O2 Delivery O2 Flow Rate FiO2 12/18/16 15:28 67 15 104/65 99 12/18/16 14:21 76 16 91/55 98 Room Air 12/18/16 12:28 63 16 121/60 99 Room Air 12/18/16 11:29 36.8 91 16 125/83 97 Room Air Physical Exam CONSTITUTIONAL: Patient is a slightly uncomfortable appearing 31-year-old white female who is awake and alert and in no acute distress. EYES: Pupils equal, round, reactive to light and accommodation. EOMs intact without nystagmus. Sclera are anicteric. ENT: Tympanic membranes intact, with normal landmarks. External canals are clear. Oral and nasopharynx are clear. Mucous membranes are moist, no lesions , tongue and gums appear normal. NECK: No bruits auscultated. Supple without lymphadenopathy. No thyromegaly. No meningeal signs. Full active range of motion without discomfort. CARDIOVASCULAR: Regular rate and rhythm, with normal S1 and S2, no murmur or gallop or rub is heard. No carotid bruits auscultated. No JVD. Peripheral pulses easily palpable. RESPIRATORY: Breath sounds equal and clear to auscultation without wheezes, rales, or rhonchi heard. Full and equal chest expansion without accessory muscle use or retractions. ABDOMEN: Bowel sounds are present. Abdomen is soft, nondistended, tender to percussion throughout the right upper and lower quadrant. She is tender in the epigastric, right upper quadrant, right mid and right lower quadrants, no guarding, rebound or rigidity. INTEGUMENTARY: No lesions or rash, normal skin turgor. LYMPH: No lymphadenopathy. Medical Decision & Procedures ER Provider Diagnostic Interpretation: PA CHEST WITH ABDOMINAL SERIES CLINICAL HISTORY: Right-sided abdominal pain. Constipation. FINDINGS: A PA chest radiograph is compared to study dated 01/15/2015. The cardiomediastinal silhouette is unremarkable. The lungs and pleural spaces are clear. No pneumothorax is seen. The bony thorax is grossly intact. Supine and erect abdominal radiographs are correlated with abdominal CT dated 04/06/2016. There is a nonobstructed abdominal bowel gas pattern. No evidence of intraperitoneal free air is seen. Mild fecal retention is seen in the left colon. There are no abnormal abdominal calcifications. Intrauterine device is noted in the pelvis and there are small pelvic phleboliths. The lumbosacral spine and bony pelvis appear intact. IMPRESSION: 1. No active disease in the chest. 2. Nonobstructed abdominal bowel gas pattern. CT SCAN OF THE ABDOMEN AND PELVIS WITH IV CONTRAST CLINICAL HISTORY: Right-sided abdominal pain. COMPARISON STUDY: Abdominal CT dated 04/06/2016. TECHNIQUE: Following the IV administration of 91 cc of Optiray 320, CT scan of the abdomen and pelvis is performed from the lung bases to the proximal femora. Images are reviewed in the axial, sagittal, and coronal planes. IV contrast was administered without complication. Automated dose control exposure was utilized. CT DOSE: 559.55 mGy.cm FINDINGS: Lung bases: The heart is normal in size and without pericardial effusion. The lung bases are clear noting left basilar atelectasis. Liver: The contrast-enhanced liver is normal in size, contour, and attenuation. The liver appears elongated suggesting Angélica's lobe variant anatomy. There is no intrahepatic biliary ductal dilatation. The hepatic veins and portal veins are patent. Gallbladder: Unremarkable. Spleen: Normal in size and attenuation. Pancreas: Unremarkable. Adrenal glands: Unremarkable. Kidneys: The contrast-enhanced kidneys are normal in size and without hydronephrosis. The kidneys enhance symmetrically. A 1.7 cm cyst is again seen in the upper pole of the left kidney. A subcentimeter cortical hypodensity in the lower pole of left kidney also likely represents a cyst but is too small for definitive characterization. Abdominal vasculature: The abdominal aorta is normal in course and caliber. Bowel: The small bowel and colon are normal in course and caliber. The appendix is normal as visualized. Peritoneum: There is no intraperitoneal free air or abdominal ascites. Lymphadenopathy: None. Pelvic viscera: The bladder is normal as visualized. The uterus is normal in appearance noting an intrauterine device in place. Bilateral ovarian follicles are noted. There is a small volume of free fluid in the cul-de-sac. Skeletal structures: No lytic or blastic lesions are seen. IMPRESSION: 1. There are no acute infectious or inflammatory findings in the abdomen or pelvis. 2. There is a small volume of free fluid in the cul-de-sac, likely within physiologic limits. Laboratory Results 12/18/16 12:47 Red Blood Count 3.95, Mean Corpuscular Volume 89.1, Mean Corpuscular Hemoglobin 30.6, Mean Corpuscular Hemoglobin Concent 34.4, Mean Platelet Volume 10.9, Neutrophils (%) (Auto) 70.9, Lymphocytes (%) (Auto) 21.8, Monocytes (%) (Auto) 6.8, Eosinophils (%) (Auto) 0.2, Basophils (%) (Auto) 0.1, Neutrophils # (Auto) 5.90, Lymphocytes # (Auto) 1.82, Monocytes # (Auto) 0.57, Eosinophils # (Auto) 0.02, Basophils # (Auto) 0.01 12/18/16 12:47 Test 12/18/16 12:30 12/18/16 12:47 Urine Color YELLOW Urine Appearance CLEAR (CLEAR) Urine pH 7.0 (4.5-7.5) Urine Specific [place] 1.014 (1.000-1.030) Urine Protein NEG (NEG) Urine Glucose (UA) NEG (NEG) Urine Ketones NEG (NEG) Urine Occult Blood NEG (NEG) Urine Nitrite NEG (NEG) Urine Bilirubin NEG (NEG) Urine Urobilinogen NEG (NEG) Urine Leukocyte Esterase NEG (NEG) Urine Test NEG (NEG) White Blood Count 8.34 K/uL (4.8-10.8) Red Blood Count 3.95 M/uL (4.2-5.4) Hemoglobin 12.1 g/dL (12.0-16.0) Hematocrit 35.2 % (37-47) Mean Corpuscular Volume 89.1 fL (80-100) Mean Corpuscular Hemoglobin 30.6 pg (25-34) Mean Corpuscular Hemoglobin Concent 34.4 g/dl (32-36) Platelet Count 165 K/uL (130-400) Mean Platelet Volume 10.9 fL (7.4-10.4) Neutrophils (%) (Auto) 70.9 % Lymphocytes (%) (Auto) 21.8 % Monocytes (%) (Auto) 6.8 % Eosinophils (%) (Auto) 0.2 % Basophils (%) (Auto) 0.1 % Neutrophils # (Auto) 5.90 K/uL (1.4-6.5) Lymphocytes # (Auto) 1.82 K/uL (1.2-3.4) Monocytes # (Auto) 0.57 K/uL (0.11-0.59) Eosinophils # (Auto) 0.02 K/uL (0-0.5) Basophils # (Auto) 0.01 K/uL (0-0.2) RDW Standard Deviation 41.0 fL (36.4-46.3) RDW Coefficient of Variation 12.7 % (11.5-14.5) Immature Granulocyte % (Auto) 0.2 % Immature Granulocyte # (Auto) 0.02 K/uL (0.00-0.02) Anion Gap 7.0 mmol/L (3-11) Est Creatinine Clear Calc Drug Dose 117.3 ml/min Estimated GFR () 137.1 Estimated GFR (Non- 118.3 BUN/Creatinine Ratio 16.9 (10-20) Calcium Level 8.7 mg/dl (8.5-10.1) Total Bilirubin 0.5 mg/dl (0.2-1) Aspartate Amino Transf (AST/SGOT) 10 U/L (15-37) Alanine Aminotransferase (ALT/SGPT) 16 U/L (12-78) Alkaline Phosphatase 42 U/L (45-117) Total Protein 7.1 gm/dl (6.4-8.2) Albumin 4.2 gm/dl (3.4-5.0) Globulin 2.9 gm/dl (2.5-4.0) Albumin/Globulin Ratio 1.4 (0.9-2) Lipase 124 U/L (73-393) Medications Administered Medications (Trade) Dose Ordered Sig/David Route Start Time Stop Time Status Last Admin Dose Admin Sodium Chloride 1,000 ml @ 250 mls/hr Q4H STAT IV 12/18/16 12:06 12/18/16 16:05 12/18/16 12:22 250 MLS/HR Ondansetron HCl (Zofran Inj) 4 mg NOW STAT IV 12/18/16 12:06 12/18/16 12:08 DC 12/18/16 12:21 4 MG Ketorolac Tromethamine (Toradol Inj) 30 mg NOW STAT IV 12/18/16 12:06 12/18/16 12:08 DC 12/18/16 12:21 30 MG ED Course The patient was seen and evaluated as above. Her old records reviewed. IV lock was initiated and she was hydrated with normal saline solution. She was medicated with Zofran 4 mg and Toradol 30 mg IV. CBC with differential, CMP, lipase, urinalysis and urine test were performed. Acute abdominal series was obtained. Laboratory studies were largely unremarkable. White count is not elevated. H& H is normal. Electrolytes, renal function, and liver functions and lipase are all within normal limits. Urinalysis is completely clear, test is negative. Acute abdominal series showed some mild fecal retention in the left colon, no obstructive pattern. Chest was clear. The patient was reassessed. She reported some improvement in her pain with the IV Toradol. Given her right-sided abdominal pain, CT scan of the abdomen pelvis with IV contrast was ordered. CT was essentially unremarkable. Gallbladder was unremarkable. There is no evidence for nephrolithiasis or hydronephrosis. No bowel or colon were normal in course and caliber. Appendix was visualized and was normal. Bilateral ovarian follicles were noted, trace free fluid in the pelvic cul-de-sac. All laboratory and diagnostic imaging studies were reviewed with the patient. I suspect that her symptoms are related to her primary diagnosis of IBS. Workup today is largely unrevealing. Patient has had pain similar to this in the past. She is comfortable managing a bowel regimen at home. She was encouraged to follow-up with her primary care provider or with gastroenterology for symptoms are not improving. Differential diagnoses entertained included UTI, pyelonephritis, renal colic, appendicitis, ovarian cyst, ovarian torsion, , ectopic , PID, tubo-ovarian abscess, bowel obstruction, biliary colic, acute cholecystitis, cholelithiasis, pancreatitis, among others. The patient was discharged home in good condition. A coworker was driving. She rated her pain a 4/10 at discharge. Medical Decision See ED Course. [place] Drug Monitoring Program Search Results: patient reviewed within database, no issues identified Medication Reconcilliation Current Medication List: was personally reviewed by me Blood Pressure Screening Patient's blood pressure: Normal blood pressure Blood pressure disposition: Did not require urgent referral Impression Primary Impression: Right sided abdominal pain Departure Information Referrals Jonathan Witt M.D. (PCP) Patient Instructions My [facility] Additional Instructions DO NOT drive, drink alcohol, operate machinery, or perform dangerous activities today. You were given medications in the ER that can affect your ability to safely function or operate a vehicle. Acetaminophen(Tylenol) may be used for fever or pain. Use 1000mg every eight hours as needed. Avoid using more than 3000mg in a 24 hour period. This is available over the counter. Read all the package inserts or medication information paperwork provided. If you have any questions or concerns call your primary provider, pharmacist or the ER for assistance. Rest and drink plenty of fluids as tolerated. Slow sips of water or sports drinks are recommended instead of large amounts all at once. Continue current medications. Once your stomach is settled start with a clear liquid diet (jello, soup broth, etc.) and then advance as tolerated. You should avoid full, heavy meals for about 24 hrs from the time your symptoms resolved. Return to the ER immediately for worsening or persistent abdominal pain, vomiting, fevers, chest pains, difficulty breathing, black or bloody stools, worsening of your condition, or as needed. Follow up with your primary physician in 1-2 days for a recheck of your current condition.
[2016-12-18 15:28] VITALS: BP 104/65; PULSE 67; O2SAT 99
== END 2016-12-18 15:25 | disposition home or self-care (01) ==
LOC: C.EDB 11:23 → C.EDC 15:25
DX: K58.1 Irritable bowel syndrome with constipation (principal); Z87.442 Personal history of urinary calculi; Z97.5 Presence of (intrauterine) contraceptive device; F32.9 Major depressive disorder, single episode, unspecified; Z84.1 Family history of disorders of kidney and ureter; F17.210 Nicotine dependence, cigarettes, uncomplicated

== ENCOUNTER 2017-01-23 10:48 | Emergency (ER) | payer OTHER ==
[~2017-01-23] VITALS: Ht 162.6 cm; Wt 66.0 kg
[2017-01-23 11:03] VITALS: TEMP 37; Ht 162.6 cm; Wt 66.0 kg
[2017-01-23 12:05] LABS: MANUAL MICROSCOPIC REQUIRED? YES; REVIEW REQ? NO
[2017-01-23 12:06] LABS: SULFASALICYLIC ACID NEG (NEG); URINE APPEARANCE CLEAR (CLEAR); URINE COLOR ORANGE; URINE SPECIFIC GRAVITY 1.014 (1.000-1.030)
[2017-01-23 12:08] LABS: URINE BACTERIA 1+ (NEG); URINE RBC 0-4 /hpf (0-4)
[2017-01-23 12:09] LABS: ZZUR CULT IF INDIC CLEAN CATCH YES
--- NOTE | 2017-01-23 12:21 | EMERGENCY ROOM VISIT NOTE ---
History Report prepared by Anastacia: Jefe Han Under the Supervision of: Barrie HillO. First contact with patient: 11:52 Chief Complaint: URINARY SYMPTOMS Stated Complaint: UTI,COLD SYMPTOMS,FEVERISH History of Present Illness The patient is a 31 year old female who presents to the Emergency Room with complaints of persistent urinary symptoms that started upon waking this morning. She says that she has had cold symptoms for the past 3 days, including congestion, a cough, and a sore throat, and went to her family doctor 3 days ago , and was told to take Sudafed and Robitussin. She states that she has been getting hot flashes, but denies any fevers. The patient says that yesterday she was a bit nauseous. She notes that upon waking this morning, she started having UTI symptoms, and she knew that this was a UTI because she has had a few UTI's in the past. The patient states that her symptoms include burning and tingling, as well as low abdominal pain and pressure, which wraps around her back on both sides. The patient says that her low abdominal pain started a few days ago, preceding the UTI symptoms. She notes that she has been having waxing and waning chronic abdominal pain for a while, and follows-up with GI, who thinks that it is from constipation. The patient says that the pain waxes and wanes with her menstrual cycle. She states that she had a colonoscopy last year. The patient denies any chance of . Source of History: patient Onset: Upon waking this morning Position: other (global - urinary symptoms) Symptom Intensity: burning, tingling Quality: other (knows this is a UTI) Timing: other (persistent) Associated Symptoms: + sorethroat, + cough, + nausea, + abdominal pain (low) , + back pain (bilaterally), No fevers Note: Associated symptoms: Congestion past few days. Hot flashes. Review of Systems See HPI for pertinent positives & negatives. A total of 10 systems reviewed and were otherwise negative. Past Medical & Surgical Medical Problems: (1) Abdominal pain (2) Cervical spine pain (3) Constipation (4) Depressive disorder (5) History of stomach ulcers (6) Hx of ovarian cyst (7) Left ovarian cyst (8) Neck pain (9) No chronic problems (10) Right distal ureteral calculus (11) Right ovarian cyst (12) Right sided abdominal pain (13) Right upper quadrant abdominal pain (14) Tendinitis of forearm Surgical Problems: (1) History of tonsillectomy Family History Kidney disease Kidney stones Social History Smoking Status: Current Every Day Smoker Alcohol Use: occasionally Marital Status: in relationship Housing Status: lives with family Occupation Status: employed Current/Historical Medications Scheduled Cephalexin (Keflex), 1 CAP PO BID Iud's (Paragard Intrauterine Clinical Quality Manager), 1 EA INT UTER UD Allergies Coded Allergies: No Known Allergies (Verified , 01/23/17) Physical Exam Vital Signs Date Time Temp Pulse Resp B/P (MAP) Pulse Ox O2 Delivery O2 Flow Rate FiO2 01/23/17 14:45 70 18 120/38 99 01/23/17 14:00 78 18 117/36 99 Room Air 01/23/17 11:03 37.0 100 20 110/69 99 Room Air Physical Exam GENERAL: alert, well appearing, well nourished, no distress, non-toxic EYE EXAM: normal conjunctiva, PERRL and EOM's grossly intact OROPHARYNX: no exudate, no erythema, lips, buccal mucosa, and tongue normal and mucous membranes are moist NECK: supple, no nuchal rigidity, no adenopathy, non-tender LUNGS: Clear to auscultation. Normal chest wall mechanics HEART: no murmurs, S1 normal and S2 normal ABDOMEN: Mild right-sided tenderness. Abdomen soft, normo-active bowel sounds, no masses, no rebound or guarding. BACK: Back is symmetrical on inspection and there is no deformity, no midline tenderness, no CVA tenderness. SKIN: no rashes and no bruising UPPER EXTREMITIES: upper extremities are grossly normal. LOWER EXTREMITIES: No pitting edema. NEURO EXAM: Normal sensorium, cranial nerves II-XII grossly intact, normal speech, no gross weakness of arms, no gross weakness of legs. Medical Decision & Procedures ER Provider Diagnostic Interpretation: US results have been interpreted by the radiologist and reviewed by me. EXAMINATION: RENAL ULTRASOUND CLINICAL HISTORY: Urinary tract infection. Back pain. History of calculi. COMPARISON STUDY: CT scan dated 12/18/2016 FINDINGS: The right kidney measures 11.5 cm. The left kidney measures 10.1 cm. There is no evidence of hydronephrosis. There are no renal masses. No bladder abnormalities are visualized. Bilateral ureteral jets were visualized. There are few specular echoes within the bladder, likely secondary to hyper concentrated urine. IMPRESSION : No significant abnormalities identified. Electronically signed by: Francisco Johnson M.D. 01/23/2017 2:03 PM Dictated Date/Time: 01/23/2017 2:01 PM EXAMINATION: PELVIC ULTRASOUND (transabdominal and endovaginal scanning). CLINICAL HISTORY: Right lower quadrant abdominal pain COMPARISON STUDY: March 2016 FINDINGS: The uterus measured 9.5 x 5.0 x 6.3 cm.. The endometrial stripe measured 11 mm. An IUD is visualized.. The right ovary measured 45 x 24 x 48 mm. There is a 3 cm cyst/follicle. There is a complex 2.5 cm cyst/follicle likely functional. The left ovary was nonvisualized. No pathologic adnexal masses are visualized on the left. There is no ultrasonographic evidence of ovarian torsion. It should be noted that ovarian torsion can be present with normal Doppler ultrasonographic findings. There was no evidence of pathologic free pelvic fluid. IMPRESSION: 1. Nonvisualization of the left ovary 2. Indwelling IUD 3. Right ovarian follicle/cysts measuring up to 3 cm in diameter. These are likely functional. Electronically signed by: Francisco Johnson M.D. 01/23/2017 2:07 PM Dictated Date/Time: 01/23/2017 2:03 PM Laboratory Results Test 01/23/17 11:35 Urine Color ORANGE Urine Appearance CLEAR (CLEAR) Urine pH (4.5-7.5) Urine Specific [place] 1.014 (1.000-1.030) Urine Protein NEG (NEG) Urine Glucose (UA) (NEG) Urine Ketones (NEG) Urine Occult Blood (NEG) Urine Nitrite (NEG) Urine Bilirubin (NEG) Urine Urobilinogen (NEG) Urine Leukocyte Esterase (NEG) Urine RBC 0-4 /hpf (0-4) Urine WBC 10-30 /hpf (0-5) Urine Epithelial Cells 10-20 /lpf (0-5) Urine Bacteria 1+ (NEG) Urine Test NEG (NEG) Date/Time Source Procedure Growth Status 01/23/17 11:35 Urine , Clean Catch Urine Culture - Final NO GROWTH - LESS THAN 1,000 COLONIES/ML Complete Laboratory results per my review. Medications Administered Medications (Trade) Dose Ordered Sig/David Route Start Time Stop Time Status Last Admin Dose Admin Cephalexin Monohydrate (Keflex Cap) 500 mg NOW ONCE PO 01/23/17 12:45 01/23/17 12:46 DC 01/23/17 14:01 500 MG ED Course 1207: The patient was evaluated in room C1B. A complete history and physical exam was performed. 1245: Ordered Keflex Cap 500 mg PO. 1416: Upon reevaluation, the patient is feeling better. I discussed the findings and the treatment plan with the patient. She verbalizes agreement and understanding. She was discharged home. Medical Decision Differential diagnoses includes but is not limited to gastritis, peptic ulcer disease, GERD, gallbladder disease, pancreatitis, small bowel obstruction, acute coronary syndrome, pericarditis, ischemic bowel, irritable bowel disease, irritable bowel syndrome, appendicitis, diverticulitis, malignancy, hernia, urinary tract infection, torsion, /ectopic , perforation, trauma, infectious. Did not feel pt warranted repeat CT which she has had previously. Cyclical pain likely from ovarian cyst. Pt now with concurrent URI and UTI. Discussed meds, tx of URI, hydration, f/u with craps manager. Discussed sx to watch/return for, she verbalized understanding and was comfortable going home. Medication Reconcilliation Current Medication List: was personally reviewed by me Blood Pressure Screening Patient's blood pressure: Normal blood pressure Impression Primary Impression: Urinary tract infection Additional Impression: Right ovarian cyst Scribe Attestation The scribe's documentation has been prepared under my direction and personally reviewed by me in its entirety. I confirm that the note above accurately reflects all work, treatment, procedures, and medical decision making performed by me. Departure Information Dispostion Home / Self-Care Prescriptions Cephalexin (KEFLEX) 500 Mg Cap 1 CAP PO BID for 7 Days, #14 CAP Prov: Nataliya Oconnor, DO 01/23/17 Referrals Jonathan Witt M.D. (PCP) Patient Instructions My [facility] Additional Instructions Please take the antibiotics as prescribed and drink plenty of water. If you develop worsening pain, fevers, vomiting, or pain, are unable to urinate, or you have any other new concerns, please return the emergency room. Please consider taking a probiotic while you're using the antibiotics. Please call and follow up with your DESKIDDING MACHINE OPERATOR regarding your ovarian cyst. Problem Qualifiers Primary Impression: Urinary tract infection Urinary tract infection type: acute cystitis Hematuria presence: without hematuria Qualified Codes: N30.00 - Acute cystitis without hematuria
[2017-01-23] MEDS ORDERED: CEPHALEXIN MONOHYDRATE 250 MG CAP PO ONE (12:45)
--- NOTE | 2017-01-23 14:04 | DIAGNOSTIC IMAGING REPORT ---
EXAMINATION: RENAL ULTRASOUND CLINICAL HISTORY: Urinary tract infection. Back pain. History of calculi. COMPARISON STUDY: CT scan dated 12/18/2016 FINDINGS: The right kidney measures 11.5 cm. The left kidney measures 10.1 cm. There is no evidence of hydronephrosis. There are no renal masses. No bladder abnormalities are visualized. Bilateral ureteral jets were visualized. There are few specular echoes within the bladder, likely secondary to hyper concentrated urine. IMPRESSION : No significant abnormalities identified. Electronically signed by: Francisco Johnson M.D. 01/23/2017 2:03 PM Dictated Date/Time: 01/23/2017 2:01 PM
--- NOTE | 2017-01-23 14:08 | DIAGNOSTIC IMAGING REPORT ---
EXAMINATION: PELVIC ULTRASOUND (transabdominal and endovaginal scanning). CLINICAL HISTORY: Right lower quadrant abdominal pain COMPARISON STUDY: March 2016 FINDINGS: The uterus measured 9.5 x 5.0 x 6.3 cm.. The endometrial stripe measured 11 mm. An IUD is visualized.. The right ovary measured 45 x 24 x 48 mm. There is a 3 cm cyst/follicle. There is a complex 2.5 cm cyst/follicle likely functional. The left ovary was nonvisualized. No pathologic adnexal masses are visualized on the left. There is no ultrasonographic evidence of ovarian torsion. It should be noted that ovarian torsion can be present with normal Doppler ultrasonographic findings. There was no evidence of pathologic free pelvic fluid. IMPRESSION: 1. Nonvisualization of the left ovary 2. Indwelling IUD 3. Right ovarian follicle/cysts measuring up to 3 cm in diameter. These are likely functional. Electronically signed by: Francisco Johnson M.D. 01/23/2017 2:07 PM Dictated Date/Time: 01/23/2017 2:03 PM
[2017-01-23] MEDS ORDERED: CEPH-571 PO (14:31)
[2017-01-23 14:45] VITALS: BP 120/38; PULSE 70; O2SAT 99
== END 2017-01-23 14:45 | disposition home or self-care (01) ==
LOC: C.EDB 10:49 → C.EDC 14:45
DX: N30.00 Acute cystitis without hematuria (principal); N83.201 Unspecified ovarian cyst, right side; R05 Cough; J02.9 Acute pharyngitis, unspecified; R11.0 Nausea; R10.9 Unspecified abdominal pain; M54.9 Dorsalgia, unspecified; F32.9 Major depressive disorder, single episode, unspecified; Z97.5 Presence of (intrauterine) contraceptive device; Z84.1 Family history of disorders of kidney and ureter; F17.200 Nicotine dependence, unspecified, uncomplicated

== ENCOUNTER → 2017-02-02 | Outpatient (CLI) | payer OTHER | END | disposition home or self-care (01) | LOC: C.PAPS 14:28 | PROVIDERS: ATTEND Physician Assistant | DX: Z01.419 Encounter for gynecological examination (general) (routine) without abnormal findings (principal) ==

== ENCOUNTER → 2017-02-23 | Outpatient (CLI) | payer OTHER ==
[2017-02-23 17:43] LABS: HEMATOCRIT 39.1 % (37-47); MEAN CELL VOLUME 90.9 fL (80-100); MEAN CORPUSCULAR HEMOGLOBIN 30.9 pg (25-34); MEAN PLATELET VOLUME 11.9 fL (7.4-10.4); PLATELET COUNT 148 K/uL (130-400); WHITE BLOOD COUNT 9.02 K/uL (4.8-10.8)
[2017-02-23 18:16] LABS: PREG INTERNAL NEGATIVE QC NEG CLEAR BACKGROUND; PREG INTERNAL POSITIVE QC POS CONTROL LINE
== END | disposition home or self-care (01) ==
LOC: C.LAB1850 16:02
PROVIDERS: ATTEND Physician Assistant
DX: N92.6 Irregular menstruation, unspecified (principal)